=== PATIENT | male | born 1990 | race Caucasian/White ===

== ENCOUNTER 2025-05-10 19:06 | Emergency (ER) | payer OTHER ==
[2025-05-10 19:21] VITALS: BP 132/81; PULSE 82; RESP 17; TEMP 97.8; BMI 33.5
[2025-05-10] MEDS ORDERED: LIDOCAINE HCL 1%, 10 MG/ML (20ML VIAL) ONE (21:29)
[2025-05-10] MEDS: LIDOCAINE HCL 1%, 10 MG/ML (50 mL VIAL) INF ONE (22:04)
== END 2025-05-10 22:17 | disposition home or self-care (01) ==
LOC: JERFT 19:06
PROC: 0PSTXZZ Reposition Right Finger Phalanx, External Approach (ICD-10-PCS; principal; 2025-05-10)
DX: S63.256A Unspecified dislocation of right little finger, initial encounter (principal); X58.XXXA Exposure to other specified factors, initial encounter; Y93.01 Activity, walking, marching and hiking
CPT/HCPCS: 73130-TC-RT-FY; 73140-TC-RT-FY; 99283-25